=== PATIENT | male | born 1940 | race Hispanic/Latino ===

== ENCOUNTER 2021-12-20 19:55 | Emergency (ER) | payer MEDICARE ==
[2021-12-20] MEDS ORDERED: Bacitracin 1 PK ONE (22:39)
== END 2021-12-20 22:38 | disposition home or self-care (01) ==
LOC: CSHERS 19:55
DX: T85.71XA Infection and inflammatory reaction due to peritoneal dialysis catheter, initial encounter (principal); E11.9 Type 2 diabetes mellitus without complications; I10 Essential (primary) hypertension; E78.5 Hyperlipidemia, unspecified; Z99.2 Dependence on renal dialysis; Z79.899 Other long term (current) drug therapy
CPT/HCPCS: 99283

== ENCOUNTER 2022-02-04 10:52 | Inpatient (IN) | payer MEDICARE ==
[2022-02-04 12:22] VITALS: BMI 122.3
[2022-02-04] MEDS ORDERED: Dextrose 5% in Water 1,000 ML IV PRN (13:41)
[2022-02-04] MEDS ORDERED: Dextrose 50% Abboject 50 ML SYRINGE SLOW IVP PRN (13:41)
[2022-02-04] MEDS ORDERED: Vancomycin Hemodialysis Sliding Scale FS SCH (14:15)
[2022-02-04] MEDS: Acetaminophen 325 MG TAB PO PRN (18:54)
[2022-02-04] MEDS: HumaLOG 300 UNITS/3 ML VIAL SC PRN (20:56)
[2022-02-04] MEDS ORDERED: Vancomycin 1 GM in Premix Bag 1 BAG IVPB SCH (21:00)
[2022-02-05] MEDS ORDERED: HOLD VANCOMYCIN FOR LEVEL >20 FS SCH (03:15)
[2022-02-05] MEDS: Cefepime 0.5 GM, Admixture Fee 1 EACH in Sodium Chloride 0.9% 100 ML IVPB SCH (04:16)
[2022-02-05 05:09] LABS: Hemoglobin 10.4 g/dL (13.5-17.5); Mean Corpuscular HGB CONC 32.6 g/dL (32.0-36.0); Mean Platelet Volume 12.2 fl (7.4-10.4); Platelet Count 80 10x3/uL (150-450); RBC Distribution Width 15.8 % (11.5-14.5); Red Blood Cell (RBC) Count 3.71 10x6/uL (4.32-5.72); White Blood Cell (WBC) Count 5.1 10x3/uL (3.5-10.5)
[2022-02-05 05:27] LABS: Anion Gap 15 mmol/L (10-20); BUN (Urea Nitrogen) 35 mg/dL (8.4-25.7); Calc. Creatinine Clearance 9 mL/min (70-130); Calcium 8.6 mg/dL (7.8-10.44); Carbon Dioxide 28 mmol/L (23-31); Chloride 97 mmol/L (98-107); Estimated GFR 8; Glucose 104 mg/dL (83-110); Sodium 136 mmol/L (136-145)
[2022-02-05 06:30] LABS: MDiff Complete? YES; Platelet Morphology Comment Appears Decreased
[2022-02-05 06:34] LABS: Band 12 % (5-11); Lymphocytes 8 % (21-51); Monocytes 9 % (0-10); Neutrophil 69 % (42-75)
[2022-02-05] MEDS ORDERED: Vancomycin 1 GM in Premix Bag 1 BAG IVPB SCH ×2 (09:00→17:00)
[2022-02-05] MEDS: ADMIXTURE FEE CHEMO IVPB SCH (13:24)
[2022-02-05] MEDS: ACYCLOVIR SODIUM IVPB SCH (13:24)
[2022-02-05] MEDS: SODIUM CHLORIDE 0.9% IVPB SCH (13:24)
[2022-02-05] MEDS ORDERED: hydrALAZINE 25 MG TAB PO SCH (13:45)
[2022-02-05] MEDS ORDERED: Vancomycin HCl 750 MG in Sodium Chloride 0.9% 250 ML 250 ML IVPB SCH (17:00)
[2022-02-05] MEDS ORDERED: Vancomycin HCl 250 MG in Sodium Chloride 0.9% 100 ML IVPB SCH (17:00)
[2022-02-05] MEDS ORDERED: Vancomycin HCl 500 MG in Sodium Chloride 0.9% 100 ML IVPB SCH (17:00)
[2022-02-05] MEDS: hydrALAZINE 25 MG TAB PO SCH (21:31)
[2022-02-05] MEDS: Calcium Acetate 667 MG CAP PO SCH (21:31)
[2022-02-05] MEDS: Rosuvastatin 10 MG TAB PO SCH (21:31)
[2022-02-06] MEDS: Cefepime 0.5 GM, Admixture Fee 1 EACH in Sodium Chloride 0.9% 100 ML IVPB SCH (04:04)
[2022-02-06 04:54] LABS: Hemoglobin 9.5 g/dL (13.5-17.5); Mean Corpuscular HGB CONC 33.7 g/dL (32.0-36.0); Mean Corpuscular Hemoglobin 27.9 pg (27.0-33.0); Mean Corpuscular Volume 82.9 fl (81.2-95.1); Mean Platelet Volume 12.8 fl (7.4-10.4); Platelet Count 97 10x3/uL (150-450); RBC Distribution Width 15.7 % (11.5-14.5)
[2022-02-06 05:02] LABS: MDiff Complete? YES
[2022-02-06 05:03] LABS: Anion Gap 19 mmol/L (10-20); BUN (Urea Nitrogen) 61 mg/dL (8.4-25.7); Calc. Creatinine Clearance 7 mL/min (70-130); Calcium 8.2 mg/dL (7.8-10.44); Carbon Dioxide 22 mmol/L (23-31); Chloride 97 mmol/L (98-107); Estimated GFR 6; Glucose 151 mg/dL (83-110); Potassium 3.9 mmol/L (3.5-5.1); Sodium 134 mmol/L (136-145)
[2022-02-06 05:59] LABS: Band 2 % (5-11); Eosinophils 3 % (0-10); Lymphocytes 6 % (21-51); Monocytes 8 % (0-10); Neutrophil 81 % (42-75)
[2022-02-06 06:02] LABS: Anisocytosis SLIGHT = 6-15 cells (100X) (0-5/hpf); Microcytosis SLIGHT = 6-15 cells (100X) (0-5/hpf); Spherocytes SLIGHT = 1-5 cells (100X) (None Seen)
[2022-02-06 06:03] LABS: Platelet Morphology Comment Appears Decreased; Target Cells SLIGHT = 2-5 cells (100X) (0-1/hpf)
[2022-02-06] MEDS: Calcium Acetate 667 MG CAP PO SCH ×2 (09:02→21:25)
[2022-02-06] MEDS: Amlodipine 5 MG TAB PO SCH (09:02)
[2022-02-06] MEDS: hydrALAZINE 25 MG TAB PO SCH ×3 (09:03→21:24)
[2022-02-06] MEDS: SODIUM CHLORIDE 0.9% IVPB SCH (13:21)
[2022-02-06] MEDS: ADMIXTURE FEE CHEMO IVPB SCH (13:21)
[2022-02-06] MEDS: ACYCLOVIR SODIUM IVPB SCH (13:21)
[2022-02-06] MEDS: HumaLOG 300 UNITS/3 ML VIAL SC PRN (17:01)
[2022-02-06] MEDS: Rosuvastatin 10 MG TAB PO SCH (21:25)
[2022-02-06] MEDS: Acetaminophen 325 MG TAB PO PRN (21:25)
[2022-02-07 04:34] LABS: Hemoglobin 9.4 g/dL (13.5-17.5); Mean Corpuscular HGB CONC 33.8 g/dL (32.0-36.0); Mean Corpuscular Hemoglobin 28.1 pg (27.0-33.0); Mean Corpuscular Volume 83.2 fl (81.2-95.1); Mean Platelet Volume 13.2 fl (7.4-10.4); Platelet Count 97 10x3/uL (150-450); RBC Distribution Width 15.7 % (11.5-14.5); Red Blood Cell (RBC) Count 3.34 10x6/uL (4.32-5.72); White Blood Cell (WBC) Count 4.7 10x3/uL (3.5-10.5)
[2022-02-07 04:44] LABS: Anion Gap 21 mmol/L (10-20); BUN (Urea Nitrogen) 83 mg/dL (8.4-25.7); Calc. Creatinine Clearance 6 mL/min (70-130); Carbon Dioxide 20 mmol/L (23-31); Chloride 96 mmol/L (98-107); Potassium 4.2 mmol/L (3.5-5.1); Sodium 133 mmol/L (136-145)
[2022-02-07 04:45] LABS: Calcium 7.9 mg/dL (7.8-10.44); Estimated GFR 5; Glucose 202 mg/dL (83-110)
[2022-02-07] MEDS: HumaLOG 300 UNITS/3 ML VIAL SC PRN ×3 (05:29→22:09)
[2022-02-07 06:08] LABS: MDiff Complete? YES
[2022-02-07 06:51] LABS: Band 1 % (5-11); Eosinophils 1 % (0-10); Lymphocytes 13 % (21-51); Monocytes 8 % (0-10); Neutrophil 76 % (42-75); Reactive Lymphocytes 1 % (0-10)
[2022-02-07 06:54] LABS: Anisocytosis SLIGHT = 6-15 cells (100X) (0-5/hpf); Hypochromia SLIGHT = 6-15 cells (100X) (0-5/hpf); Microcytosis SLIGHT = 6-15 cells (100X) (0-5/hpf)
[2022-02-07 06:55] LABS: Large Platelets SLIGHT; Platelet Morphology Comment Appears Decreased
[2022-02-07 07:56] LABS: Vancomycin, Random 10.2 ug/mL (See Comment)
[2022-02-07] MEDS: hydrALAZINE 25 MG TAB PO SCH ×3 (13:00→22:04)
[2022-02-07] MEDS: Calcium Acetate 667 MG CAP PO SCH ×2 (13:02→22:06)
[2022-02-07] MEDS: Amlodipine 5 MG TAB PO SCH (13:03)
[2022-02-07] MEDS: ACYCLOVIR SODIUM IVPB SCH (15:17)
[2022-02-07] MEDS: SODIUM CHLORIDE 0.9% IVPB SCH (15:17)
[2022-02-07] MEDS: ADMIXTURE FEE CHEMO IVPB SCH (15:17)
[2022-02-07] MEDS ORDERED: Vancomycin HCl 500 MG in Sodium Chloride 0.9% 100 ML IVPB SCH (17:00)
[2022-02-07] MEDS: Rosuvastatin 10 MG TAB PO SCH (22:06)
[2022-02-08 04:46] LABS: #Eosinphils 0.1 10x3/uL (0.0-0.5); #Monocytes 0.7 10x3/uL (0.0-1.1); #Neutrophils 3.7 10x3/uL (1.5-8.4); %Basophils 0.4 % (0.0-2.0); %Eosinophils 2.8 % (0.0-6.0); %Lymphocytes 9.7 % (18.0-47.0); %Monocytes 13.9 % (0.0-10.0); %Neutrophils 72.4 % (40.0-75.0); Hemoglobin 8.7 g/dL (13.5-17.5); Mean Corpuscular Hemoglobin 27.4 pg (27.0-33.0); Mean Corpuscular Volume 83.3 fl (81.2-95.1); Platelet Count 124 10x3/uL (150-450); RBC Distribution Width 15.6 % (11.5-14.5); Red Blood Cell (RBC) Count 3.17 10x6/uL (4.32-5.72); White Blood Cell (WBC) Count 5.1 10x3/uL (3.5-10.5)
[2022-02-08 04:54] LABS: Anion Gap 17 mmol/L (10-20); BUN (Urea Nitrogen) 46 mg/dL (8.4-25.7); Calc. Creatinine Clearance 9 mL/min (70-130); Calcium 7.9 mg/dL (7.8-10.44); Carbon Dioxide 24 mmol/L (23-31); Chloride 98 mmol/L (98-107); Estimated GFR 9; Glucose 144 mg/dL (83-110); Potassium 4.2 mmol/L (3.5-5.1); Sodium 135 mmol/L (136-145)
[2022-02-08] MEDS: Calcium Acetate 667 MG CAP PO SCH ×2 (08:30→20:55)
[2022-02-08] MEDS: hydrALAZINE 25 MG TAB PO SCH ×3 (08:31→20:55)
[2022-02-08] MEDS: Amlodipine 5 MG TAB PO SCH (08:31)
[2022-02-08] MEDS: SODIUM CHLORIDE 0.9% IVPB SCH (15:38)
[2022-02-08] MEDS: ACYCLOVIR SODIUM IVPB SCH (15:38)
[2022-02-08] MEDS: ADMIXTURE FEE CHEMO IVPB SCH (15:38)
[2022-02-08] MEDS: Rosuvastatin 10 MG TAB PO SCH (20:55)
[2022-02-08] MEDS: HumaLOG 300 UNITS/3 ML VIAL SC PRN (21:16)
[2022-02-09 05:07] LABS: #Eosinphils 0.2 10x3/uL (0.0-0.5); #Monocytes 0.7 10x3/uL (0.0-1.1); #Neutrophils 3.8 10x3/uL (1.5-8.4); %Basophils 0.4 % (0.0-2.0); %Eosinophils 3.8 % (0.0-6.0); %Monocytes 12.6 % (0.0-10.0); %Neutrophils 69.1 % (40.0-75.0); Hemoglobin 8.6 g/dL (13.5-17.5); Mean Corpuscular HGB CONC 33.7 g/dL (32.0-36.0); Mean Corpuscular Hemoglobin 27.9 pg (27.0-33.0); Mean Corpuscular Volume 82.8 fl (81.2-95.1); Mean Platelet Volume 11.9 fl (7.4-10.4); Platelet Count 174 10x3/uL (150-450); RBC Distribution Width 15.8 % (11.5-14.5); Red Blood Cell (RBC) Count 3.08 10x6/uL (4.32-5.72); White Blood Cell (WBC) Count 5.6 10x3/uL (3.5-10.5)
[2022-02-09 05:26] LABS: Anion Gap 21 mmol/L (10-20); BUN (Urea Nitrogen) 74 mg/dL (8.4-25.7); Calc. Creatinine Clearance 7 mL/min (70-130); Carbon Dioxide 22 mmol/L (23-31); Chloride 97 mmol/L (98-107); Estimated GFR 6; Glucose 141 mg/dL (83-110); Sodium 135 mmol/L (136-145)
[2022-02-09] MEDS ORDERED: Lidocaine 2% 20 ml MDV ONE (07:05)
[2022-02-09] MEDS ORDERED: EPINEPHrine 1 MG/ML AMP ONE (07:05)
[2022-02-09] MEDS ORDERED: Ketamine 50 MG/ML (10ML VIAL) ONE (07:06)
[2022-02-09] MEDS ORDERED: Bupivacaine PF 0.5% 30 ML VIAL ONE (07:06)
[2022-02-09] MEDS ORDERED: Heparin 10,000 UNITS/ 10 ML VIAL ONE (07:06)
[2022-02-09] MEDS ORDERED: Ondansetron PF 4 MG/2 ML Vial ONE (07:14)
[2022-02-09] MEDS ORDERED: PROPOFOL 20 ML ONE ×2 (07:14→07:25)
[2022-02-09] MEDS ORDERED: Dexamethasone 4 mg/ml Vial ONE (07:14)
[2022-02-09] MEDS ORDERED: Lidocaine 2% PF 5 ML VIAL ONE (07:15)
[2022-02-09] MEDS ORDERED: Fentanyl 100 MCG/2 ML VIAL ONE (07:18)
[2022-02-09] MEDS: Amlodipine 5 MG TAB PO SCH (07:50)
[2022-02-09] MEDS: Calcium Acetate 667 MG CAP PO SCH (07:50)
[2022-02-09] MEDS: hydrALAZINE 25 MG TAB PO SCH ×2 (07:51→15:56)
[2022-02-09 08:58] LABS: Vancomycin, Random 12.1 ug/mL (See Comment)
[2022-02-09] MEDS ORDERED: Vancomycin HCl 500 MG in Sodium Chloride 0.9% 100 ML IVPB SCH (17:00)
[2022-02-09 18:37] VITALS: BP 156/63; TEMP 98.7
== END 2022-02-09 18:41 | disposition home or self-care (01) | DRG 314 ==
LOC: CSHTELE 10:52
PROVIDERS: ADMIT Internal Medicine; ATTEND Hospitalist
PROC: 0JH63XZ Insertion of Tunneled Vascular Access Device into Chest Subcutaneous Tissue and Fascia, Percutaneous Approach (ICD-10-PCS; principal; 2022-02-09)
PROC: 02HV33Z Insertion of Infusion Device into Superior Vena Cava, Percutaneous Approach (ICD-10-PCS; 2022-02-09)
PROC: B5181ZA Fluoroscopy of Superior Vena Cava using Low Osmolar Contrast, Guidance (ICD-10-PCS; 2022-02-09)
PROC: B548ZZA Ultrasonography of Superior Vena Cava, Guidance (ICD-10-PCS; 2022-02-09)
PROC: 5A1D70Z Performance of Urinary Filtration, Intermittent, Less than 6 Hours Per Day (ICD-10-PCS; 2022-02-09)
DX: T80.211A Bloodstream infection due to central venous catheter, initial encounter (principal); N18.6 End stage renal disease; A41.02 Sepsis due to Methicillin resistant Staphylococcus aureus; E87.1 Hypo-osmolality and hyponatremia; B02.7 Disseminated zoster; I12.0 Hypertensive chronic kidney disease with stage 5 chronic kidney disease or end stage renal disease; D63.1 Anemia in chronic kidney disease; E11.22 Type 2 diabetes mellitus with diabetic chronic kidney disease; E78.5 Hyperlipidemia, unspecified; Z20.822 Contact with and (suspected) exposure to COVID-19; E87.5 Hyperkalemia; D69.6 Thrombocytopenia, unspecified; Y83.8 Other surgical procedures as the cause of abnormal reaction of the patient, or of later complication, without mention of misadventure at the time of the procedure; M54.10 Radiculopathy, site unspecified; Z79.899 Other long term (current) drug therapy; Z99.2 Dependence on renal dialysis
CPT/HCPCS: 36415; 36416; 71045; 72146; 80048; 80202; 85025; 87070; 87077; 87086; 87149; 87186; 87205; 87252; 87798; 90935; 93306; 94760; C1752; G0257; J0133; J0171; J0692; J1100; J1644; J1815; J2001; J2405; J2704; J3010; J3370; J3490; S0020

== ENCOUNTER 2022-10-28 15:13 | Inpatient (IN) | payer OTHER ==
[2022-10-28 16:09] LABS: #Eosinphils 0.3 10x3/uL (0.0-0.5); #Monocytes 0.4 10x3/uL (0.0-1.1); #Neutrophils 2.7 10x3/uL (1.5-8.4); %Eosinophils 6.9 % (0.0-6.0); %Lymphocytes 12.6 % (18.0-47.0); Hemoglobin 7.2 g/dL (13.5-17.5); Mean Corpuscular HGB CONC 30.8 g/dL (32.0-36.0); Mean Corpuscular Hemoglobin 28.7 pg (27.0-33.0); Mean Corpuscular Volume 93.2 fl (81.2-95.1); Mean Platelet Volume 10.7 fl (7.4-10.4); Platelet Count 191 10x3/uL (150-450); RBC Distribution Width 15.4 % (11.5-14.5); Red Blood Cell (RBC) Count 2.51 10x6/uL (4.32-5.72); White Blood Cell (WBC) Count 3.9 10x3/uL (3.5-10.5)
[2022-10-28 16:29] LABS: ALT (SGPT) 14 U/L (8-55); AST (SGOT) 18 U/L (5-34); Albumin 3.7 g/dL (3.4-4.8); Alkaline Phosphatase 79 U/L (40-110); Anion Gap 20 mmol/L (10-20); BUN (Urea Nitrogen) 88 mg/dL (8.4-25.7); Bilirubin, Total 0.2 mg/dL (0.2-1.2); Calc. Creatinine Clearance 0 mL/min (70-130); Calcium 7.6 mg/dL (7.8-10.44); Carbon Dioxide 19 mmol/L (23-31); Chloride 108 mmol/L (98-107); Estimated GFR 5; Globulin 2.3 g/dL (2.4-3.5); Glucose 96 mg/dL (83-110); Potassium 5.2 mmol/L (3.5-5.1); Sodium 142 mmol/L (136-145)
[2022-10-28] MEDS ORDERED: Ondansetron PF 4 MG/2 ML Vial IVP PRN (17:47)
[2022-10-28] MEDS ORDERED: Ondansetron ODT 4 MG TAB PO PRN (17:47)
[2022-10-28] MEDS ORDERED: Acetaminophen 325 MG TAB PO PRN (17:47)
[2022-10-28] MEDS ORDERED: HumaLOG 300 UNITS/3 ML VIAL SC PRN ×2 (17:49)
[2022-10-28] MEDS ORDERED: Dextrose 50% Abboject 50 ML SYRINGE SLOW IVP PRN (17:49)
[2022-10-28] MEDS ORDERED: Dextrose 5% in Water 1,000 ML IV PRN (17:49)
[2022-10-28 17:58] LABS: HBSAg Index 0.18 S/CO (0-0.99); Hep B Surf Ag Non-Reactive S/CO (NonReactive)
[2022-10-29 00:58] LABS: Hep B Core Total Ab Non-Reactive (NonReactive); Hep B Core Total Index 0.11 S/CO (0-0.79); Hep C IgG Ab Non-Reactive (NonReactive)
[2022-10-29 01:07] LABS: HBSAB Concentration 70.12 mIU/mL; Hep B Surf AB Reactive (NonReactive)
[2022-10-29 03:41] VITALS: BMI 25.4
[2022-10-29 05:25] LABS: Anion Gap 21 mmol/L (10-20); BUN (Urea Nitrogen) 100 mg/dL (8.4-25.7); Calc. Creatinine Clearance 6 mL/min (70-130); Calcium 7.6 mg/dL (7.8-10.44); Carbon Dioxide 18 mmol/L (23-31); Chloride 111 mmol/L (98-107); Estimated GFR 5; Glucose 135 mg/dL (83-110); Potassium 4.9 mmol/L (3.5-5.1); Sodium 145 mmol/L (136-145)
[2022-10-29 05:30] LABS: #Eosinphils 0.2 10x3/uL (0.0-0.5); #Monocytes 0.5 10x3/uL (0.0-1.1); %Basophils 0.9 % (0.0-2.0); %Eosinophils 5.4 % (0.0-6.0); %Lymphocytes 11.6 % (18.0-47.0); %Monocytes 10.8 % (0.0-10.0); %Neutrophils 71.1 % (40.0-75.0); Hemoglobin 6.9 g/dL (13.5-17.5); Mean Corpuscular HGB CONC 30.4 g/dL (32.0-36.0); Mean Corpuscular Hemoglobin 28.3 pg (27.0-33.0); Mean Platelet Volume 10.7 fl (7.4-10.4); Platelet Count 190 10x3/uL (150-450); RBC Distribution Width 15.2 % (11.5-14.5); Red Blood Cell (RBC) Count 2.44 10x6/uL (4.32-5.72); White Blood Cell (WBC) Count 4.2 10x3/uL (3.5-10.5)
[2022-10-29] MEDS ORDERED: Heparin 10,000 UNITS/ 10 ML VIAL SLOW IVP PRN (08:49)
[2022-10-29] MEDS ORDERED: Tuberculin PPD 0.1 ML VIAL I-DERMAL SCH (10:45)
[2022-10-29] MEDS ORDERED: EPOETIN ALFA-EPBX (ESRD) 10,000 UNIT/ML VIAL IVP SCH (11:00)
[2022-10-29] MEDS ORDERED: HYDROcodone/Acetaminophen 5/325 mg Tablet PO PRN (14:08)
[2022-10-29] MEDS: Rosuvastatin 10 MG TAB PO SCH (22:32)
[2022-10-29] MEDS: Calcium Acetate 667 MG CAP PO SCH (22:32)
[2022-10-30 05:42] LABS: #Eosinphils 0.2 10x3/uL (0.0-0.5); #Monocytes 0.4 10x3/uL (0.0-1.1); #Neutrophils 2.8 10x3/uL (1.5-8.4); %Eosinophils 4.7 % (0.0-6.0); %Lymphocytes 13.6 % (18.0-47.0); %Monocytes 10.7 % (0.0-10.0); %Neutrophils 69.3 % (40.0-75.0); Hemoglobin 7.1 g/dL (13.5-17.5); Mean Corpuscular Hemoglobin 28.7 pg (27.0-33.0); Mean Corpuscular Volume 92.7 fl (81.2-95.1); Mean Platelet Volume 11.5 fl (7.4-10.4); Platelet Count 182 10x3/uL (150-450); RBC Distribution Width 15.1 % (11.5-14.5); Red Blood Cell (RBC) Count 2.47 10x6/uL (4.32-5.72)
[2022-10-30 06:03] LABS: Anion Gap 18 mmol/L (10-20); BUN (Urea Nitrogen) 49 mg/dL (8.4-25.7); Calc. Creatinine Clearance 10 mL/min (70-130); Calcium 8.1 mg/dL (7.8-10.44); Carbon Dioxide 25 mmol/L (23-31); Chloride 104 mmol/L (98-107); Estimated GFR 8; Glucose 92 mg/dL (83-110); Potassium 4.2 mmol/L (3.5-5.1); Sodium 143 mmol/L (136-145)
[2022-10-30] MEDS: Losartan 25 MG TAB PO SCH (09:38)
[2022-10-30] MEDS: Amlodipine 5 MG TAB PO SCH ×2 (09:39→09:55)
[2022-10-30] MEDS: Aspirin Chewable 81 MG TAB PO SCH (09:39)
[2022-10-30] MEDS: Calcium Acetate 667 MG CAP PO SCH ×2 (09:39→21:43)
[2022-10-30] MEDS: Rosuvastatin 10 MG TAB PO SCH (21:43)
[2022-10-31 04:10] LABS: #Eosinphils 0.3 10x3/uL (0.0-0.5); #Monocytes 0.4 10x3/uL (0.0-1.1); #Neutrophils 2.8 10x3/uL (1.5-8.4); %Eosinophils 6.1 % (0.0-6.0); %Lymphocytes 14.6 % (18.0-47.0); %Monocytes 9.7 % (0.0-10.0); %Neutrophils 67.6 % (40.0-75.0); Hemoglobin 7.2 g/dL (13.5-17.5); Mean Corpuscular HGB CONC 31.2 g/dL (32.0-36.0); Mean Corpuscular Hemoglobin 28.9 pg (27.0-33.0); Mean Corpuscular Volume 92.8 fl (81.2-95.1); Mean Platelet Volume 11.1 fl (7.4-10.4); Platelet Count 183 10x3/uL (150-450); Red Blood Cell (RBC) Count 2.49 10x6/uL (4.32-5.72); White Blood Cell (WBC) Count 4.1 10x3/uL (3.5-10.5)
[2022-10-31 04:16] LABS: Anion Gap 19 mmol/L (10-20); BUN (Urea Nitrogen) 70 mg/dL (8.4-25.7); Calc. Creatinine Clearance 7 mL/min (70-130); Calcium 8.3 mg/dL (7.8-10.44); Carbon Dioxide 24 mmol/L (23-31); Chloride 107 mmol/L (98-107); Estimated GFR 6; Magnesium 2.3 mg/dL (1.6-2.6); Potassium 4.6 mmol/L (3.5-5.1); Sodium 145 mmol/L (136-145)
[2022-10-31 04:26] LABS: Glucose 100 mg/dL (83-110)
[2022-10-31] MEDS ORDERED: EPOETIN ALFA-EPBX (ESRD) 10,000 UNIT/ML VIAL IVP PRN (07:00)
[2022-10-31] MEDS: Aspirin Chewable 81 MG TAB PO SCH (08:39)
[2022-10-31] MEDS: Calcium Acetate 667 MG CAP PO SCH ×2 (08:39→21:00)
[2022-10-31] MEDS: Losartan 25 MG TAB PO SCH (09:25)
[2022-10-31] MEDS: Amlodipine 5 MG TAB PO SCH (09:25)
[2022-10-31] MEDS: Rosuvastatin 10 MG TAB PO SCH (21:00)
[2022-11-01 06:27] LABS: Anion Gap 17 mmol/L (10-20); BUN (Urea Nitrogen) 41 mg/dL (8.4-25.7); Calc. Creatinine Clearance 11 mL/min (70-130); Calcium 8.1 mg/dL (7.8-10.44); Carbon Dioxide 26 mmol/L (23-31); Chloride 102 mmol/L (98-107); Estimated GFR 10; Glucose 120 mg/dL (83-110); Magnesium 2.1 mg/dL (1.6-2.6); Potassium 4.3 mmol/L (3.5-5.1); Sodium 141 mmol/L (136-145)
[2022-11-01 07:19] LABS: #Eosinphils 0.2 10x3/uL (0.0-0.5); #Monocytes 0.4 10x3/uL (0.0-1.1); #Neutrophils 2.5 10x3/uL (1.5-8.4); %Eosinophils 4.4 % (0.0-6.0); %Lymphocytes 17.2 % (18.0-47.0); %Monocytes 10.9 % (0.0-10.0); Hemoglobin 7.3 g/dL (13.5-17.5); Mean Corpuscular HGB CONC 31.5 g/dL (32.0-36.0); Mean Corpuscular Hemoglobin 29.1 pg (27.0-33.0); Mean Corpuscular Volume 92.4 fl (81.2-95.1); Mean Platelet Volume 10.9 fl (7.4-10.4); Platelet Count 185 10x3/uL (150-450); RBC Distribution Width 15.2 % (11.5-14.5); Red Blood Cell (RBC) Count 2.51 10x6/uL (4.32-5.72); White Blood Cell (WBC) Count 3.8 10x3/uL (3.5-10.5)
[2022-11-01] MEDS: Aspirin Chewable 81 MG TAB PO SCH (08:25)
[2022-11-01] MEDS: Losartan 25 MG TAB PO SCH (08:26)
[2022-11-01] MEDS: Calcium Acetate 667 MG CAP PO SCH (08:26)
[2022-11-01] MEDS: Amlodipine 5 MG TAB PO SCH (08:28)
[2022-11-01] MEDS ORDERED: READ PPD TEST SITE PO SCH (09:00)
[2022-11-01 12:31] VITALS: BP 153/67; TEMP 97.9
== END 2022-11-01 13:00 | disposition home or self-care (01) | DRG 682 ==
LOC: CSHERS 15:13 → CSHTELE 17:47
PROVIDERS: ADMIT Internal Medicine; ATTEND Internal Medicine
PROC: 5A1D70Z Performance of Urinary Filtration, Intermittent, Less than 6 Hours Per Day (ICD-10-PCS; principal; 2022-10-29)
DX: I12.0 Hypertensive chronic kidney disease with stage 5 chronic kidney disease or end stage renal disease (principal); N18.6 End stage renal disease; E87.20 Acidosis, unspecified; D63.1 Anemia in chronic kidney disease; E11.22 Type 2 diabetes mellitus with diabetic chronic kidney disease; E78.5 Hyperlipidemia, unspecified; E87.5 Hyperkalemia; E88.09 Other disorders of plasma-protein metabolism, not elsewhere classified; Z98.42 Cataract extraction status, left eye; Z99.2 Dependence on renal dialysis; Z98.41 Cataract extraction status, right eye; Z79.899 Other long term (current) drug therapy; Z79.82 Long term (current) use of aspirin
CPT/HCPCS: 36415; 36416; 80048; 80053; 83735; 85025; 86704; 90935; 93005; 93010; 94760; G0257; J1644; Q5105